=== PATIENT | female | born 1985 | race Caucasian/White ===

== ENCOUNTER 2020-08-26 17:23 | Emergency (ER) | payer SELFPAY ==
[~2020-08-26] VITALS: Ht 170.2 cm; Wt 74.8 kg
[2020-08-26] MEDS ORDERED: LORazepam 0.5 MG (ATIVAN) TABLET PO STA (17:52)
--- NOTE | 2020-08-26 17:54 | NUR ---
PT WAS PREVIOUSLY TAKING SEIZURE MEDICATIONS, BUT DECIDED TO TAKE HERSELF OFF OF THEM.
--- NOTE | 2020-08-26 18:25 | Diagnostic Imaging Report ---
PROCEDURE: CT head and CT cervical spine without contrast. TECHNIQUE: Multiple contiguous axial images were obtained through the brain and cervical spine without the use of intravenous contrast. Sagittal and coronal reformations through the cervical spine were then performed. Auto Exposure Controls were utilized during the CT exam to meet ALARA standards for radiation dose reduction. INDICATION: Passed out and fell. EXAMINATION: CT brain, CT cervical spine 08/26/2020 FINDINGS: Brain: FINDINGS: Multiple axial images of the brain without contrast. There is no evidence for acute hemorrhage or infarct. There is no mass, mass effect, midline shift or hydrocephalus. The paranasal sinuses and mastoid air cells demonstrate no acute abnormality. IMPRESSION: No acute intracranial process. CT cervical spine: There is reversal of normal lordosis which could be positional or due to muscle spasm. No subluxations or fractures appreciated. The lung apices are clear. There is no acute process within the prevertebral soft tissues. Vague low-density areas in the right thyroid lobe likely caused by artifact less likely due to small underlying nodules; clinical correlation with physical examination if necessary nonemergent sonography could further characterize. IMPRESSION: 1. No acute process within the cervical spine other than reversal of the normal curvature, other findings as above. Dictated by: Dictated on workstation # [id number]
[2020-08-26 19:27] VITALS: BP 119/67
== END 2020-08-26 19:28 | disposition home or self-care (01) ==
LOC: ER FS 17:26
DX: R29.818 Other symptoms and signs involving the nervous system (principal)
CPT/HCPCS: 70450; 72125; 82962

== ENCOUNTER 2020-08-28 06:25 | Emergency (ER) | payer SELFPAY ==
--- NOTE | 2020-08-28 06:39 | ED Neurological Problem ---
General Chief Complaint: Neurological Problems Stated Complaint: SEIZURES Nursing Triage Note: Pt states she had 2 seizures during the night but doesn't remember them. Pt also complaining of a headache Nursing Sepsis Screen: No Definite Risk (LINO DUDLEY DO) History of Present Illness Date Seen by Provider: Aug 28, 2020 Time Seen by Provider: 06:39 Initial Comments 34-year-old female presents with PMHx significant for seizures. Seen in this ER 2 days ago for a seizure, fall with a head injury and neck pain. She received a CT scan and Rx for Ativan and DC'd home with advised follow up care. Last night she had a seizure around midnight and then a few hours later. Her called 911 and then they refused transport. Patient arrives this morning with her , feeling tired does not remember having seizure. Patient states 10 years ago, she took Topamax for her seizures and was well-controlled, she was followed by neurologist Sundeep Garcia, however she stopped taking her medication about 9 years ago because she thought she was doing well Denies any recent illness, fever or chills, illicit drug use or any known precipitating event. Patient denies any injury from last nights seizures, but states her tongue is sore. Denies loss of bowel or bladder control. (LINO DUDLEY DO) Allergies and Home Medications Allergies Coded Allergies: No Known Drug Allergies (Unverified , 08/26/20) Home Medications Levetiracetam 250 Mg Tablet, 500 MG PO BID Prescribed by: MALACHI HATHAWAY on 08/28/20 0923 Patient Home Medication List Home Medication List Reviewed: Yes (LINO DUDLEY DO) Review of Systems Review of Systems Constitutional: No chills, No fever; malaise; No weakness Eyes: No Symptoms Reported Ears, Nose, Mouth, Throat: see HPI, mouth pain (tongue sore); denies mouth swelling, denies throat pain, denies throat swelling Respiratory: No cough, No short of breath Cardiovascular: No chest pain, No edema, No palpitations Gastrointestinal: No abdominal pain, No constipation, No diarrhea, No nausea, No vomiting Psychiatric/Neurological: See HPI; Denies Headache, Denies Numbness, Denies Tingling; Tonic Clonic Seizures (LINO DUDLEY DO) Gastrointestinal: nausea (on arrival but improved) Genitourinary: No dysuria, No frequency Musculoskeletal: neck pain Skin: No rash Psychiatric/Neurological: Headache Endocrine: Denies Increased Thrist, Denies Increased Urine (MALACHI HATHAWAY MD) Past Cohdzpw-Eumnbd-Ptnhgb Hx Past Med/Social Hx: Reviewed Nursing Past Med/Soc Hx (LINO DUDLEY DO) Patient Social History Alcohol Use: Denies Use Recreational Drug Use: No Smoking Status: Never a Smoker 2nd Hand Smoke Exposure: No Recent Foreign Travel: No Contact w/Someone Who Travel: No Recent Infectious Disease Expo: No Recent Hopitalizations: No Physical Abuse: No Sexual Abuse: No (JOEYSTAMANDEEPLINO L ) Seasonal Allergies Seasonal Allergies: No (JOEYSTINELINO L ) Past Medical History Surgeries: No Respiratory: No Cardiac: No Neurological: Yes Seizure Disorder Genitourinary: No Gastrointestinal: No Musculoskeletal: No Endocrine: No HEENT: No Cancer: No Psychosocial: No Integumentary: No Blood Disorders: No (GAMA DUDLEYEN Oksana LLOYD) Respiratory: No Cardiac: No Neurological: Yes Seizure Disorder Reproductive Disorders: No Genitourinary: No Gastrointestinal: No Musculoskeletal: No Endocrine: No HEENT: No Psychosocial: No Integumentary: No (MALACHI HATHAWAY MD) Physical Exam Vital Signs Vital Signs - First Documented 08/28/20 06:30 Temp 36.9 Pulse 82 Resp 16 B/P (MAP) 120/70 (87) Pulse Ox 100 O2 Delivery Room Air (MALACHI HATHAWAY MD) Vital Signs Capillary Refill : Less Than 3 Seconds (LINO DUDLEY DO) Height, Weight, BMI Height: '" Weight: lbs. oz. kg; 25.00 BMI Method: General Appearance: WD/WN, no apparent distress HEENT: PERRL/EOMI, normal ENT inspection Neck: non-tender, full range of motion, supple Respiratory: chest non-tender, lungs clear, normal breath sounds, no respiratory distress, no accessory muscle use Cardiovascular: regular rate, rhythm, no edema, no gallop, no JVD Gastrointestinal: non tender, soft Back: normal inspection, no CVA tenderness Extremities: non-tender, normal inspection, no pedal edema Neurologic/Psychiatric: ground wirer II-XII nml as tested, no motor/sensory deficits, alert, normal mood/affect, oriented x 3 Skin: normal color, warm/dry (ROVENSTINE,LINO L DO) Cardiovascular: normal peripheral pulses Crainal Nerves: normal speech, PERRL Motor/Sensory: no motor deficit, no sensory deficit (MALACHI HATHAWAY MD) Focused Exam Lactate Level 08/28/20 06:55: Lactic Acid Level 2.74*H (MALACHI HATHAWAY MD) Lactic Acid Level Laboratory Tests Test 08/28/20 06:55 Lactic Acid Level 2.74 MMOL/L (0.50-2.00) *H (MALACHI HATHAWAY MD) Progress/Results/Core Measures Results/Orders Lab Results Laboratory Tests Test 08/28/20 06:55 08/28/20 08:40 Range/Units White Blood Count 8.4 4.3-11.0 10^3/uL Red Blood Count 4.35 4.35-5.85 10^6/uL Hemoglobin 13.5 11.5-16.0 G/DL Hematocrit 41 35-52 % Mean Corpuscular Volume 94 80-99 FL Mean Corpuscular Hemoglobin 31 25-34 PG Mean Corpuscular Hemoglobin Concent 33 32-36 G/DL Red Cell Distribution Width 13.1 10.0-14.5 % Platelet Count 214 130-400 10^3/uL Mean Platelet Volume 10.9 H 7.4-10.4 FL Immature Granulocyte % (Auto) 0 % Neutrophils (%) (Auto) 81 H 42-75 % Lymphocytes (%) (Auto) 11 L 12-44 % Monocytes (%) (Auto) 7 0-12 % Eosinophils (%) (Auto) 1 0-10 % Basophils (%) (Auto) 0 0-10 % Neutrophils # (Auto) 6.8 1.8-7.8 X 10^3 Lymphocytes # (Auto) 0.9 L 1.0-4.0 X 10^3 Monocytes # (Auto) 0.6 0.0-1.0 X 10^3 Eosinophils # (Auto) 0.1 0.0-0.3 10^3/uL Basophils # (Auto) 0.0 0.0-0.1 10^3/uL Immature Granulocyte # (Auto) 0.0 0.0-0.1 10^3/uL Sodium Level 140 135-145 MMOL/L Potassium Level 4.3 3.6-5.0 MMOL/L Chloride Level 105 98-107 MMOL/L Carbon Dioxide Level 21 21-32 MMOL/L Anion Gap 14 5-14 MMOL/L Blood Urea Nitrogen 8 7-18 MG/DL Creatinine 0.79 0.60-1.30 MG/DL Estimat Glomerular Filtration Rate > 60 BUN/Creatinine Ratio 10 Glucose Level 98 70-105 MG/DL Lactic Acid Level 2.74 *H 0.50-2.00 MMOL/L Calcium Level 9.1 8.5-10.1 MG/DL Corrected Calcium 8.9 8.5-10.1 MG/DL Total Bilirubin 1.0 0.1-1.0 MG/DL Aspartate Amino Transf (AST/SGOT) 33 5-34 U/L Alanine Aminotransferase (ALT/SGPT) 21 0-55 U/L Alkaline Phosphatase 67 40-136 U/L Total Protein 7.1 6.4-8.2 GM/DL Albumin 4.3 3.2-4.5 GM/DL Urine Color YELLOW Urine Clarity CLEAR Urine pH 6.0 5-9 Urine Specific [place] 1.015 L 1.016-1.022 Urine Protein NEGATIVE NEGATIVE Urine Glucose (UA) NEGATIVE NEGATIVE Urine Ketones NEGATIVE NEGATIVE Urine Nitrite NEGATIVE NEGATIVE Urine Bilirubin NEGATIVE NEGATIVE Urine Urobilinogen 0.2 < = 1.0 MG/DL Urine Leukocyte Esterase NEGATIVE NEGATIVE Urine RBC (Auto) NEGATIVE NEGATIVE Urine RBC NONE /HPF Urine WBC NONE /HPF Urine Squamous Epithelial Cells 0-2 /HPF Urine Crystals NONE /LPF Urine Bacteria NONE /HPF Urine Casts NONE /LPF Urine Mucus NEGATIVE /LPF Urine Culture Indicated NO (MALACHI HATHAWAY MD) My Orders Orders - MALACHI HATHAWAY MD Ns Iv 1000 Ml (Sodium Chloride 0.9%) (08/28/20 07:30) Drug Screen Stat (Urine) (08/28/20 07:27) Ketorolac Injection (Toradol Injection) (08/28/20 07:45) Orphenadrine Inj (Ed Only) (Norflex Inje (08/28/20 07:45) Ondansetron Injection (Zofran Injectio (08/28/20 07:45) (MALACHI HATHAWAY MD) Medications Given in ED Current Medications Medications Dose Ordered Sig/Nasra Route Start Time Stop Time Status Last Admin Dose Admin Ketorolac Tromethamine 30 mg ONCE ONCE IVP 08/28/20 07:45 08/28/20 07:47 DC 08/28/20 08:11 30 MG Ondansetron HCl 4 mg ONCE ONCE IVP 08/28/20 07:45 08/28/20 07:47 DC 08/28/20 08:11 4 MG Orphenadrine Citrate 60 mg ONCE ONCE IVP 08/28/20 07:45 08/28/20 07:47 DC 08/28/20 08:10 60 MG (MALACHI HATHAWAY MD) Vital Signs/I&O 08/28/20 06:30 Temp 36.9 Pulse 82 Resp 16 B/P (MAP) 120/70 (87) Pulse Ox 100 O2 Delivery Room Air (MALACHI HATHAWAY MD) Blood Pressure Mean: 87 Progress Progress Note #1: Progress Note I assumed care of patient from Dr. Dudley at shift change. Patient was resting in the room. Her informed the nurse that pt had seizures about 10-12 years ago and took Topamax for them. Then she was having side effects of the medicine with hallucinations so she stopped the medicine but has not had any further complications until this week. Labs show normal CBC with a left shift and normal Chemistry but she did have a slight elevation of her lactic acid w hich could be consistent with seizure activity. She is complaining of headache with neck muscle pain and states she had some nausea on arrival but feeling better now. Will give IVF for hydration, Toradol and norflex to help with headache and neck pain. Zofran to ensure she is able to drink and keep down fluids. Counseled that can start her on some anti-seizure medicine such as Kepp ra or Lamictal if she wants something different than the Topamax that gave her hallucinations. If she would rather wait until she can see Dr. Koroma or get in with Neurology like Dr. Guevara out of [place] or Dr. Muniz out of [place] or someone out of area that is possible too but with the [place] and New Year holidays coming up clinics may be difficult to schedule a new appointment. Progress Note #2: Progress Note UA does not show UTI. UDS pending at discharge but pt denies drug use. She was feeling a little dizzy after the Norflex for muscle pain in neck. She states she has no prescription drug coverage but was willing to take script for generic keppra and see about filling it. Given info for Dr. Chacorta Guevara that comes to [facility] for clinic to see Neurology pts and also advised to check with [facility] as they may have someone. Counseled on follow up and return precautions and advised to avoid driving until cleared by neurology or pcp. (MALACHI HATHAWAY MD) Transfer of Care Time: 07:00 Care transferred to: transfer care to Dr Hathaway at shift change (LINO DUDLEY DO) Departure Impression Primary Impression: Seizure Disposition: HOME, SELF-CARE Condition: Stable Departure-Patient Inst. Decision time for Depature: 09:14 (MALACHI HATHAWAY MD) Referrals: ALLYN KOROMA MD (PCP/Family) Primary Care Physician Patient Instructions: Seizures, Adult (DC) Add. Discharge Instructions: Do not drive a vehicle until cleared by neurology or your primary provider. Try to stay on a regular schedule to help limit further seizures. Stay well hydrated and get plenty of rest. Start taking medication to help prevent seizures and see about scheduling follow up with clinic and neurologist for further evaluation and testing. You could check with [employer], a program to help with cost of medications. See if it would be better to fill the script at [facility] or you could also check with Dr. Koroma or a provider at the [facility] clinic to see if they would be willing to take the prescription and write it so you could fill it at [facility] and it might be cheaper there. Dr. Chacorta Guevara MD is a Neurologist that comes to [facility] to do clinic a few times a month. You could call [phone] to see about scheduling or check with Dr. Koroma to see if there is a Neurologist that comes to [facility]. All discharge instructions reviewed with patient and/or family. Voiced understanding. Scripts Levetiracetam (Levetiracetam) 250 Mg Tablet 500 MG PO BID for seizures for 30 Days, #120 TAB 0 Refills Prov: MALACHI HATHAWAY MD 08/28/20 LINO DUDLEY DO Aug 28, 2020 06:39 MALACHI HATHAWAY MD Aug 28, 2020 08:10
[2020-08-28 07:07] LABS: BASOPHILS % (AUTO) 0 % (0-10); EOSINOPHILS % (AUTO) 1 % (0-10); HEMATOCRIT 41 % (35-52); HEMOGLOBIN 13.5 G/DL (11.5-16.0); LYMPHOCYTES # (AUTO) 0.9 X 10^3 (1.0-4.0); LYMPHOCYTES % (AUTO) 11 % (12-44); MEAN CORPUSCULAR HEMOGLOBIN 31 PG (25-34); MEAN CORPUSCULAR HGB CONC 33 G/DL (32-36); MEAN CORPUSCULAR VOLUME 94 FL (80-99); MEAN PLATELET VOLUME 10.9 FL (7.4-10.4); MONOCYTES % (AUTO) 7 % (0-12); NEUTROPHILS # (AUTO) 6.8 X 10^3 (1.8-7.8); NEUTROPHILS % (AUTO) 81 % (42-75); PLATELET COUNT 214 10^3/uL (130-400); WHITE BLOOD COUNT 8.4 10^3/uL (4.3-11.0)
[2020-08-28 07:08] LABS: EOSINOPHILS # (AUTO) 0.1 10^3/uL (0.0-0.3); MONOCYTES # (AUTO) 0.6 X 10^3 (0.0-1.0)
[2020-08-28 07:22] LABS: CARBON DIOXIDE 21 MMOL/L (21-32); CHLORIDE 105 MMOL/L (98-107); POTASSIUM 4.3 MMOL/L (3.6-5.0); SODIUM 140 MMOL/L (135-145)
[2020-08-28 07:23] LABS: ALANINE AMINOTRANSFERASE 21 U/L (0-55); ALBUMIN 4.3 GM/DL (3.2-4.5); ALKALINE PHOSPHATASE 67 U/L (40-136); BUN/CREATININE RATIO 10; CALCIUM 9.1 MG/DL (8.5-10.1); CREATININE SERUM 0.79 MG/DL (0.60-1.30); GFR ESTIMATED > 60; GLUCOSE 98 MG/DL (70-105); TOTAL PROTEIN 7.1 GM/DL (6.4-8.2)
[2020-08-28] MEDS ORDERED: NS IV 1000 ML 1,000 ML IV SCH (07:30)
[2020-08-28] MEDS ORDERED: ONDANSETRON 4 MG/2 ML (SDV) Z0FRAN IVP ONE (07:45)
[2020-08-28] MEDS ORDERED: KETOROLAC 30 MG/ML VIAL IVP ONE (07:45)
[2020-08-28] MEDS ORDERED: ORPHENADRINE 60 MG/2 ML (NORFLEX) AMP (ED ONLY) IVP ONE (07:45)
[2020-08-28 08:50] LABS: CLARITY,URINE CLEAR; COLOR,URINE YELLOW
[2020-08-28 08:51] LABS: BILIRUBIN,URINE NEGATIVE (NEGATIVE); GLUCOSE, URINE (UA) NEGATIVE (NEGATIVE); KETONES,URINE NEGATIVE (NEGATIVE); LEUKOCYTE ESTERASE ,URINE NEGATIVE (NEGATIVE); NITRITE,URINE NEGATIVE (NEGATIVE); PROTEIN,URINE NEGATIVE (NEGATIVE); SQUAMOUS EPITHELIAL CELL,UR 0-2 /HPF
[2020-08-28] MEDS ORDERED: LEVE250T5 PO (09:23)
[2020-08-28 09:41] VITALS: BP 102/50
[2020-08-28 10:07] LABS: AMPHETAMINE SCREEN, URINE NEGATIVE (NEGATIVE); BARBITURATE SCREEN URINE NEGATIVE (NEGATIVE); BENZODIAZEPINES SCREEN URINE POSITIVE (NEGATIVE); CANNABINOID SCREEN, URINE NEGATIVE (NEGATIVE); COCAINE SCREEN URINE NEGATIVE (NEGATIVE); METHADONE STAT NEGATIVE (NEGATIVE); METHAMPHETAMINE SCREEN URINE S NEGATIVE (NEGATIVE); OPIATE SCREEN URINE NEGATIVE (NEGATIVE); OXYCODONE STAT NEGATIVE (NEGATIVE); PROPOXYPHENE STAT NEGATIVE (NEGATIVE); TRICYCLIC ANTIDEPRESSANTS SCRE NEGATIVE (NEGATIVE)
[2020-08-28 15:33] LABS: CREATINE KINASE 359 U/L (29-168)
== END 2020-08-28 09:41 | disposition home or self-care (01) ==
LOC: EDUNIT# 06:25 → ER FS 06:28
DX: G40.909 Epilepsy, unspecified, not intractable, without status epilepticus (principal)
CPT/HCPCS: 36415; 80053; 80306; 81000; 82550; 83605; 85025